=== PATIENT | male | born 1945 | race Caucasian/White ===

== ENCOUNTER 2019-01-14 12:58 | Inpatient (IN) | payer BC, MEDICARE ==
[~2019-01-14] VITALS: Ht 182.9 cm; Wt 91.6 kg
[2019-01-14 13:20] VITALS: BP 137/77
--- NOTE | 2019-01-14 14:01 | NUR ---
PT TO ER BED 12
--- NOTE | 2019-01-14 14:05 | NUR ---
BIB FAMILY W C/O LT UPPER BACK NON DRAINING ABSCESS PAIN 10/10 X 8 DAYS. WARM TO TOUCH. HAS BEEN TAKING VALACYCLOVER X 3 DAYS WITH NO RELIEF. UNABLE TO SLEEP AT NIGHT. NO FEVER. NO N/V/D. HOB UP. BED SIDE RAILS UP X 1. ON LOW BED POSITION, LOCKED. ER MADE AWARE.
[2019-01-14] MEDS ORDERED: NACL 0.9% 1,000 ML IV SCH ×2 (14:25→17:30)
[2019-01-14] MEDS ORDERED: PIPERACILLIN/TAZOBACTAM 3.375 GM in DEXT 5% MINI-BAG PLUS 50 ML IV ONE (14:25)
[2019-01-14] MEDS ORDERED: VANCOMYCIN 1,000 MG in DEXTROSE 5% 250 ML IV ONE (14:25)
[2019-01-14] MEDS ORDERED: PIPERACILLIN/TAZOBACTAM 3.375 GM VIAL IV ONE (14:45)
[2019-01-14 15:00] LABS: BASOPHILS # (AUTO) 0.1 K/uL (0.00-0.22); BASOPHILS % (AUTO) 0.7 % (0.0-2.0); EOSINOPHILS # (AUTO) 0.1 K/uL (0-0.4); EOSINOPHILS % (AUTO) 0.9 % (0.0-4.0); HEMATOCRIT 40.3 % (36-52); HEMOGLOBIN 13.9 g/dL (12.0-18.0); LYMPHOCYTES # (AUTO) 1.5 K/uL (2.0-11.5); LYMPHOCYTES % (AUTO) 19.3 % (20.5-51.1); MEAN CORPUSCULAR HEMOGLOBIN 31 pg (27-31); MEAN CORPUSCULAR HGB CONC 34 g/dL (33-37); MEAN CORPUSCULAR VOLUME 90.4 fL (80-94); MONOCYTES # (AUTO) 0.7 K/uL (0.8-1.0); MONOCYTES % (AUTO) 9.6 % (1.7-9.3); NEUTROPHILS # (AUTO) 5.3 K/uL (1.8-7.7); NEUTROPHILS % (AUTO) 69.5 % (42.2-75.2); PLATELET COUNT (AUTO) 217 K/uL (140-450); RED BLOOD CELL COUNT(AUTO) 4.46 MIL/uL (4.20-6.10); RED CELL DISTRIBUTION WIDTH 12.6 % (11.6-13.7); WHITE BLOOD COUNT (AUTO) 7.7 K/uL (4.8-10.8)
[2019-01-14 15:08] LABS: MAGNESIUM 2.1 mg/dL (1.8-2.4)
[2019-01-14 15:12] LABS: ACETONE, SERUM NEGATIVE (NEGATIVE)
[2019-01-14 15:13] LABS: ANION GAP 10.3 (8-16); CARBON DIOXIDE 28.1 mmol/L (21-32); CHLORIDE 98 mmol/L (98-107); CREATININE 0.9 mg/dL (0.7-1.3); GLUCOSE 397 mg/dL (74-106); POTASSIUM 4.4 mmol/L (3.5-5.1); SODIUM SERUM 132 mmol/L (136-145); UREA NITROGEN, BLOOD 13 mg/dL (7-18)
[2019-01-14 15:15] LABS: ALBUMIN 3.2 g/dL (3.4-5.0); ASPARTATE AMINOTRANSFERASE 17 U/L (15-37); TOTAL BILIRUBIN 0.4 mg/dL (0.0-1.0)
[2019-01-14] MEDS ORDERED: VANCOMYCIN 1,000 MG VIAL ONE (15:20)
--- NOTE | 2019-01-14 15:51 | NUR ---
FAMILY WOULD LIKE TO BE CONTACTED FOR ANY CHANGES TITA BURCIAGA (SON) [phone] MAURILIO HARO (SON) [phone] KATHRYNHEATHER BURCIAGA (DAUGHTER) [phone]
[2019-01-14 16:08] LABS: APPEARANCE,URINE CLEAR (CLEAR); BILIRUBIN,URINE NEGATIVE (NEGATIVE); BLOOD, URINE NEGATIVE (NEGATIVE); COLOR,URINE YELLOW (YELLOW); LEUKOCYTE ESTERASE ,URINE NEGATIVE (NEGATIVE); NITRITE, URINE NEGATIVE (NEGATIVE); UGLUCOSE 3+ (NEGATIVE)
[2019-01-14] MEDS ORDERED: INSULIN REGULAR, HUMAN 100 UNIT/ML VIAL SUBQ ONE (16:25)
[2019-01-14] MEDS ORDERED: ONDANSETRON 4 MG/2 ML VIAL IVP PRN (16:30)
[2019-01-14] MEDS ORDERED: ACETAMINOPHEN 325 MG TAB PO PRN (16:30)
[2019-01-14] MEDS ORDERED: DEXTROSE 50% 50 ML SYR IVP PRN (16:35)
--- NOTE | 2019-01-14 16:37 | NUR ---
Dr. Tamayo evaluating patient at bedside.
[2019-01-14] MEDS ORDERED: VANCOMYCIN PER PHARMACY MC PRN (16:55)
[2019-01-14 17:00] VITALS: BP 140/73
--- NOTE | 2019-01-14 17:00 | NUR ---
PATIENT ARRIVED FROM ER VIA WHEELCHAIR. NO DISTRESS NOTED. PAIN WITHIN TOLERABLE. V/S STABLE. AAOX4, CALM, COOPERATIVE, FAMILY MEMBER AT BEDSIDE. HAS LEFT UPPER BACK INTACT CELLULITIS. ABLE TO AMBULATE. IV SITE INTACT, PATENT. ORIENTED PATIENT TO ROOM AND CALL LIGHT. REVIEWED PLAN OF CARE WITH PATIENT/FAMILY. PATIENT/FAMILY VERBALIZED UNDERSTANDING. SAFETY MEASURES IN PLACE, CALL LIGHT WITHIN REACH. WILL CONTINUE TO MONITOR.
[2019-01-14] MEDS ORDERED: VALA1TAB PO (17:03)
[2019-01-14 17:09] LABS: BARBITURATE, URINE NEG. ng/ml (NEG <=200); BENZODIAZEPINE, URINE NEG. ng/mL (NEG <=200); CANNABINOID, URINE NEG. ng/mL (NEG <=50); COCAINE, URINE NEG. ng/mL (NEG <=300); OPIATE, URINE NEG. ng/mL (NEG <=2000); PHENCYCLIDINE SCREEN,URINE NEG. ng/mL (NEG <=25)
--- NOTE | 2019-01-14 17:10 | NUR ---
Patient will be admitted to care of Dr Guillen. Admited to Med Surg. Will go to room 106-B. Belongings list completed. Report to ALISON Blevins.
[2019-01-14 17:19] LABS: FREE T4 (FREE THYROXINE) 0.78 ng/dL (0.76-1.46); PHOSPHORUS 3.1 mg/dL (2.5-4.9); THYROID STIMULATING HORMONE 4.27 uIU/mL (0.34-3.74)
[2019-01-14 17:33] LABS: PROTHROMBIN TIME 9.9 secs (10.8-13.4)
--- NOTE | 2019-01-14 19:30 | NUR ---
RECEIVED REPORT FROM DAY SHIFT NURSE FOR CONTINUITY OF CARE. PATIENT IS AWAKE, ALERT, AND COOPERATIVE. RESPIRATION EVEN UNLABORED ON ROOM AIR. NO DISTRESS NOTED. SKIN IS WARM AND DRY. IV PATENT AND INTACT. FAMILY AT BEDSIDE. PATIENT IS AMBULATORY. ALL SAFETY MEASURES ARE IN PLACE. FAMILY AT BEDSIDE. PLAN OF CARE WAS DISCUSSED. BED IS AT LOW POSITION. CALL LIGHT WITHIN REACH AND ABLE TO VERBALIZE ITS USE. WILL CONTINUE TO MONITOR.
--- NOTE | 2019-01-14 19:33 | NUR ---
GAVE REPORT TO ENGINE HEAD REPAIRER NURSE FOR CONTINUITY OF CARE. PATIENT IN STABLE CONDITION.
[2019-01-14 20:00] VITALS: BP 139/69
--- NOTE | 2019-01-14 20:00 | NUR ---
INITIAL ASSESSMENT DONE. VITALS WERE TAKEN. PATIENT CONDITION STABLE. WILL CONTINUE TO MONITOR.
--- NOTE | 2019-01-14 20:30 | NUR ---
ALL SCHEDULE MEDS WERE GIVEN. PATIENT COMPLAINED OF BACK PAIN 04/24. PRN PAIN MED ADMINISTERED. WILL CONTINUE TO MONITOR.
[2019-01-14] MEDS: DOCUSATE SODIUM 100 MG GELCAP PO SCH (20:32)
[2019-01-14] MEDS: HYDROcodone/APAP 7.5/325 MG 1 TAB PO PRN (20:34)
[2019-01-14] MEDS: INSULIN LISPRO SLIDING SCALE 100 UNITS/ML VIAL SUBQ PRN (21:08)
[2019-01-14] MEDS: BLOOD GLUCOSE MONITORING 1 DEV DEV FS SCH (21:09)
[2019-01-14] MEDS: DEXT 5% /NACL 0.9% 1,000 ML IV SCH (22:02)
--- NOTE | 2019-01-14 22:30 | NUR ---
CHECKED PATIENT. PATIENT SLEEPING RESPIRATION EVEN UNLABORED ON ROOM AIR. NO DISTRESS NOTED. WILL CONTINUE TO MONITOR.
[2019-01-15] VITALS: BP 116/50
--- NOTE | 2019-01-15 | NUR ---
VITALS WERE TAKEN. PATIENT CONDITION STABLE. NO DISTRESS NOTED WILL CONTINUE TO MONITOR.
--- NOTE | 2019-01-15 02:00 | NUR ---
CHECKED PATIENT. PATIENT SLEEPING RESPIRATION EVEN UNLABORED ON ROOM AIR. NO DISTRESS NOTED. WILL CONTINUE TO MONITOR.
[2019-01-15] MEDS ORDERED: VANCOMYCIN 1GM/DEXT 5% PREMIX 200 ML IV SCH (04:00)
--- NOTE | 2019-01-15 04:00 | NUR ---
CHECKED PATIENT. PATIENT SLEEPING RESPIRATION EVEN UNLABORED ON ROOM AIR. NO DISTRESS NOTED. WILL CONTINUE TO MONITOR.
[2019-01-15] MEDS: INSULIN LISPRO SLIDING SCALE 100 UNITS/ML VIAL SUBQ PRN ×4 (06:38→20:22)
[2019-01-15] MEDS: BLOOD GLUCOSE MONITORING 1 DEV DEV FS SCH ×4 (06:40→20:23)
[2019-01-15 07:01] LABS: BASOPHILS % (AUTO) 0.4 % (0.0-2.0); EOSINOPHILS # (AUTO) 0.1 K/uL (0-0.4); EOSINOPHILS % (AUTO) 1.6 % (0.0-4.0); HEMATOCRIT 39.2 % (36-52); HEMOGLOBIN 13.2 g/dL (12.0-18.0); LYMPHOCYTES # (AUTO) 1.6 K/uL (2.0-11.5); LYMPHOCYTES % (AUTO) 23.2 % (20.5-51.1); MEAN CORPUSCULAR HEMOGLOBIN 31 pg (27-31); MEAN CORPUSCULAR HGB CONC 34 g/dL (33-37); MEAN CORPUSCULAR VOLUME 90.3 fL (80-94); MONOCYTES # (AUTO) 0.8 K/uL (0.8-1.0); MONOCYTES % (AUTO) 10.8 % (1.7-9.3); NEUTROPHILS # (AUTO) 4.5 K/uL (1.8-7.7); PLATELET COUNT (AUTO) 210 K/uL (140-450); RED BLOOD CELL COUNT(AUTO) 4.34 MIL/uL (4.20-6.10); RED CELL DISTRIBUTION WIDTH 12.7 % (11.6-13.7); WHITE BLOOD COUNT (AUTO) 7.1 K/uL (4.8-10.8)
--- NOTE | 2019-01-15 07:19 | NUR ---
ENDORSED PATIENT TO DAY SHIFT NURSE FOR CONTINUITY OF CARE. PATIENT IS STABLE.
--- NOTE | 2019-01-15 07:20 | NUR ---
OR NURSES ON UNIT TO TAKE PATIENT FOR I&D. WILL CONTINUE TO MONITOR WHEN PATIENT RETURNS ON UNIT.
--- NOTE | 2019-01-15 07:22 | NUR ---
RECEIVED REPORT FROM TELEPHONE OPERATOR NURSE. PATIENT ON HIS WAY TO OR FOR I&D. NO DISTRESS NOTED. AAOX4, CALM, COOPERATIVE. HAS LEFT UPPER BACK CELLULITIS THAT IS INTACT WITH ERYTHEMA. IV SITE INTACT, PATENT. REVIEWED PLAN OF CARE WITH PATIENT. PATIENT VERBALIZED UNDERSTANDING. SAFETY MEASURES IN PLACE, CALL LIGHT WITHIN REACH. WILL CONTINUE TO MONITOR.
[2019-01-15 07:25] LABS: ANION GAP 11.3 (8-16); CARBON DIOXIDE 27.4 mmol/L (21-32); CHLORIDE 101 mmol/L (98-107); CREATININE 0.8 mg/dL (0.7-1.3); GLUCOSE 258 mg/dL (74-106); POTASSIUM 3.7 mmol/L (3.5-5.1); SODIUM SERUM 136 mmol/L (136-145); UREA NITROGEN, BLOOD 12 mg/dL (7-18)
[2019-01-15] MEDS ORDERED: PROPOFOL 200 MG/20 ML VIAL IV ONE (07:30)
[2019-01-15] MEDS ORDERED: SEVOFLURANE 250 ML BTL INH ONE (07:30)
[2019-01-15] MEDS ORDERED: NACL 0.9% 1,000 ML IV SCH (07:34)
[2019-01-15 07:35] LABS: PHOSPHORUS 3.5 mg/dL (2.5-4.9)
[2019-01-15] MEDS ORDERED: BLOOD GLUCOSE MONITORING 1 DEV DEV FS SCH (07:35)
[2019-01-15] MEDS ORDERED: HYDROmorphone 1 MG/ML AMP IVP PRN (07:35)
[2019-01-15] MEDS ORDERED: diphenhydrAMINE 50 MG/ML VIAL IVP PRN (07:35)
[2019-01-15] MEDS ORDERED: MEPERIDINE 25 MG/ML SYR IVP PRN (07:35)
[2019-01-15] MEDS ORDERED: ONDANSETRON 4 MG/2 ML VIAL IVP PRN (07:35)
[2019-01-15] MEDS ORDERED: MIDAZOLAM 2 MG/2 ML VIAL ONE (07:57)
[2019-01-15] MEDS ORDERED: fentaNYL 0.05 MG/ML VIAL ONE (07:58)
[2019-01-15] MEDS ORDERED: MEPERIDINE 25 MG/ML SYR ONE (07:58)
[2019-01-15] MEDS ORDERED: BUPIVACAINE-MPF 0.25% 30 ML VIAL INJ ONE (07:59)
[2019-01-15] MEDS: DEXT 5% /NACL 0.9% 1,000 ML IV SCH (08:00)
[2019-01-15 08:13] LABS: CHOL/HDL RATIO 6.2 (1-4.5)
--- NOTE | 2019-01-15 08:37 | NUR ---
PATIENT HAS BEEN SCREENED AND CATEGORIZED HIGH NUTRITION RISK. PATIENT WILL BE SEEN WITHIN 1-2 DAYS OF ADMISSION. 01/15/19-01/16/[address]
--- NOTE | 2019-01-15 09:08 | NUR ---
PATIENT BACK ON UNIT FROM OR. NO DISTRESS NOTED. PAIN WITHIN TOLERABLE. V/S STABLE. WILL CONTINUE TO MONITOR.
[2019-01-15 09:15] VITALS: BP 128/55
[2019-01-15] MEDS: metFORMIN 500 MG TAB PO SCH ×2 (09:44→17:01)
[2019-01-15] MEDS: DOCUSATE SODIUM 100 MG GELCAP PO SCH ×2 (09:44→20:22)
--- NOTE | 2019-01-15 10:12 | NUR ---
CM NOTE RECEIVED ORDER FOR HOME HEALTH. PER DR. WEBER, STILL WAITING FOR CULTURE RESULTS AND THE PLAN IS FOR POSSIBLE DISCHARGE TOMORROW. SPOKE WITH [facility] CM COORDINATOR GABBI TO INFORM REGARDING ORDER FOR HOME HEALTH. PER GABBI, FAX THE ORDER AND CLINICAL PACKET TO [facility] FAX# [phone] PH# [phone]. FAXED REQUESTED INFO TO [facility], ATTN: [facility]. PER DE ONE[facility], SHE WILL CALL BACK TO LET US KNOW WHICH HOME HEALTH WILL BE ASSIGNED TO THE PATIENT.
--- NOTE | 2019-01-15 11:00 | NUR ---
PATIENT LYING DOWN IN BED SLEEPING, AROUSABLE BY VOICE. NO DISTRESS NOTED. CONDITION UNCHANGED. WILL CONTINUE TO MONITOR.
--- NOTE | 2019-01-15 11:28 | NUR ---
CM NOTE PER [facility] OF [facility] PH# [phone], THE PATIENT HAS BEEN SET UP WITH HOME HEALTH CALLED [facility] PH# [phone]. PER TYRONE OF [facility] THEY ARE ACCEPTING THE PATIENT AND SHE WAS MADE AWARE OF THE PLAN FOR DISCHARGE TOMORROW. PER TYRONE THEY WILL HAVE A NURSE TO SEE THE PATIENT WHEN DISCHARGED. DR. WEBER AWARE. Addendum: 01/16/19 at 1414 by Elena Santacruz CM RECEIVED FAX FROM [facility] STATING THAT FOR [facility]# [phone]
--- NOTE | 2019-01-15 12:31 | NUR ---
01/15/19 RD INITIAL ASSESSMENT COMPLETED PLEASE REFER TO NUTRITION ASSESSMENT UNDER CARE ACTIVITY FOR ESTIMATED NUTRITIONAL NEEDS. 1. CONTINUE CCHO 60 GM DIET TOLERATED 2. RD PROVIDED NUTRITION EDUCATION FOR PATIENT. PT ACCEPTED 3. RD TO FOLLOW-UP 5-7 DAYS, LOW RISK KARRIE TIM RD
--- NOTE | 2019-01-15 12:46 | NUR ---
PATIENT SITTING IN BED WITH LUNCH TRAY. SON AT BEDSIDE. NO DISTRESS NOTED. DENIES ANY PAIN. SCHEDULED MEDICATIONS DUE GIVEN. WILL CONTINUE TO MONITOR.
[2019-01-15] MEDS: NACL 0.9% 1,000 ML IV SCH (13:52)
[2019-01-15 16:00] VITALS: BP 136/60
[2019-01-15] MEDS: VANCOMYCIN 1,250 MG in NACL 0.9% 250 ML IV SCH (17:00)
[2019-01-15] MEDS: HYDROcodone/APAP 7.5/325 MG 1 TAB PO PRN (17:00)
--- NOTE | 2019-01-15 17:12 | NUR ---
PATIENT LYING DOWN IN BED. COMPLAINS OF S/P I&D PAIN ON LEFT UPPER BACK. NORCO GIVEN. OTHER SCHEDULED MEDICATIONS DUE GIVEN. WILL CONTINUE TO MONITOR.
--- NOTE | 2019-01-15 19:27 | NUR ---
GAVE REPORT TO REFINER OPERATOR NURSE FOR CONTINUITY OF CARE. PATIENT IN STABLE CONDITION.
--- NOTE | 2019-01-15 19:28 | NUR ---
RECEIVED PT SITTING UP ON BED TALKING TO SON AT BEDSIDE, DENIES ANY PAIN, INF INFUSING WELL, DRESSING TO LEFT UPPER BACK IN PLACE WITH MINIMAL BLOODY STAIN BUT NO ACTIVE BLEEDING NOTED, DRESSING DRY AND INTACT, PLAN OF CARE DISCUSSED, SAFETY MEASURES IN PLACE, CALL LIGHT WITHIN REACH.
[2019-01-15] MEDS: INSULIN LANTUS 100 UNITS/ML 10 ML VIAL SUBQ SCH (20:22)
--- NOTE | 2019-01-15 20:30 | NUR ---
BLOOD SUGAR CHECKED WITH 235 RESULT, PT AT FIRST REFUSED INSULIN COVERAGE AND DUE LANTUS, RISK AND BENEFITS EXPLAINED, ABLE TO CONVINCE TO GET INSULIN COVERAGE BUT REFUSING LANTUS, ALL NEEDS ATTENDED.
[2019-01-16] VITALS: BP 129/58
--- NOTE | 2019-01-16 | NUR ---
PT SLEEPING, EASILY AROUSABLE, VITAL SIGNS STABLE, DENIES ANY PAIN, DRESSING DRY AND INTACT, IVF INFUSING WELL, CONTINUE TO MONITOR CLOSELY.
--- NOTE | 2019-01-16 02:23 | NUR ---
ROUNDS MADE, PT SEEN AWAKE, KALPESH MARTINEZ ASK PT IF HE IS PAIN, PT SAID HE HAS BACK PAIN, OFFERED PAIN PILL BUT PT REFUSED STATED IT ONLY RELIEVES PAIN FOR A SHORT TIME, OFFERED TO CALL DOCTOR AND WILL ASK FOR STRONGER MEDICATION BUT PT STATED IM OK RIGHT NOW, MAYBE LATER IN THE DAY, WILL MONITOR CLOSELY.
[2019-01-16] MEDS: VANCOMYCIN 1,250 MG in NACL 0.9% 250 ML IV SCH ×2 (03:31→14:57)
--- NOTE | 2019-01-16 03:31 | NUR ---
PT SLEEPING, NO SIGNS OF PAIN, DUE VANCOMYCIN ADMINISTERED, MONITORED CLOSELY.
[2019-01-16 04:40] VITALS: BP 143/64
--- NOTE | 2019-01-16 04:40 | NUR ---
SEEN PT SLEEPING, NO SIGNS OF DISTRESS, VANCOMYCIN IVPB INFUSING WELL, MONITORED CLOSELY.
--- NOTE | 2019-01-16 05:30 | NUR ---
PT AMBULATED TO BR WITH STEADY GAIT, VOIDED FREELY, DRESSING TO LEFT UPPER BACK DRY AND INTACT, GOWN CHANGED AND PROVIDED WITH WARM BLANKET, BLOOD SUGAR CHECKED WITH 222 RESULT, WILL GIVE INSULIN COVERAGE, MONITORED CLOSELY.
[2019-01-16] MEDS: INSULIN LISPRO SLIDING SCALE 100 UNITS/ML VIAL SUBQ PRN ×4 (06:06→21:49)
[2019-01-16 06:13] LABS: BASOPHILS % (AUTO) 0.2 % (0.0-2.0); EOSINOPHILS # (AUTO) 0.1 K/uL (0-0.4); EOSINOPHILS % (AUTO) 0.9 % (0.0-4.0); HEMATOCRIT 39.6 % (36-52); HEMOGLOBIN 13.5 g/dL (12.0-18.0); LYMPHOCYTES # (AUTO) 1.7 K/uL (2.0-11.5); LYMPHOCYTES % (AUTO) 20.7 % (20.5-51.1); MEAN CORPUSCULAR HEMOGLOBIN 31 pg (27-31); MEAN CORPUSCULAR HGB CONC 34 g/dL (33-37); MONOCYTES # (AUTO) 0.9 K/uL (0.8-1.0); MONOCYTES % (AUTO) 10.8 % (1.7-9.3); NEUTROPHILS # (AUTO) 5.5 K/uL (1.8-7.7); NEUTROPHILS % (AUTO) 67.4 % (42.2-75.2); PLATELET COUNT (AUTO) 217 K/uL (140-450); RED BLOOD CELL COUNT(AUTO) 4.36 MIL/uL (4.20-6.10); RED CELL DISTRIBUTION WIDTH 12.6 % (11.6-13.7); WHITE BLOOD COUNT (AUTO) 8.1 K/uL (4.8-10.8)
[2019-01-16 06:28] LABS: ANION GAP 12.9 (8-16); CARBON DIOXIDE 26.9 mmol/L (21-32); CHLORIDE 101 mmol/L (98-107); CREATININE 0.8 mg/dL (0.7-1.3); GLUCOSE 221 mg/dL (74-106); POTASSIUM 3.8 mmol/L (3.5-5.1); SODIUM SERUM 137 mmol/L (136-145); UREA NITROGEN, BLOOD 10 mg/dL (7-18)
[2019-01-16] MEDS: BLOOD GLUCOSE MONITORING 1 DEV DEV FS SCH ×4 (06:53→21:23)
--- NOTE | 2019-01-16 07:10 | NUR ---
RECEIVED PT REPORT FROM REHABILITATION SPECIALIST NURSE AT BEDSIDE. PT IS ASLEEP AT THIS TIME, NO S/S OF ACUTE DISTRESS OR SOB NOTED. PT IS ON ROOM AIR. DRY DRESSING NOTED ON THE L SIDE BACK, INTACT. OTHERWISE, SKIN IS INTACT. IV SITE NOTED ON LANDRY LAC, 20 G, INFUSING NS 50 ML/HR. PT IS AMBULATORY, CALL LIGHT IS WITHIN REACH. WILL CONTINUE TO MONITOR.
--- NOTE | 2019-01-16 07:27 | NUR ---
PT AWAKE, NO SIGNS OF DISTRESS, REPORT GIVEN TO ALISON MALONE FOR CONTINUITY OF CARE.
[2019-01-16 08:30] VITALS: BP 130/74
[2019-01-16] MEDS ORDERED: ATORVASTATIN 20 MG TAB PO SCH (09:00)
[2019-01-16] MEDS: ATORVASTATIN 20 MG TAB PO SCH (09:29)
[2019-01-16] MEDS: ECOTRIN 81 MG TABEC PO SCH (09:29)
[2019-01-16] MEDS: metFORMIN 500 MG TAB PO SCH ×2 (09:29→16:32)
[2019-01-16] MEDS: DOCUSATE SODIUM 100 MG GELCAP PO SCH ×2 (09:29→21:23)
[2019-01-16] MEDS: LISINOPRIL 5 MG TAB PO SCH (09:30)
[2019-01-16] MEDS: HYDROcodone/APAP 7.5/325 MG 1 TAB PO PRN ×2 (09:30→21:39)
[2019-01-16] MEDS: NACL 0.9% 1,000 ML IV SCH (09:34)
--- NOTE | 2019-01-16 09:40 | NUR ---
SCHEDULED AM MEDS ADMINISTERED, PT TOLERATED WELL. PT C/O BACK PAIN PAIN 04/24, PRN NORCO ADMINISTERED FOR PAIN. WILL REEVALUATE FOR EFFECTIVENESS.
--- NOTE | 2019-01-16 11:00 | NUR ---
PT'S VISITING AT BEDSIDE AT THIS TIME.
--- NOTE | 2019-01-16 12:02 | NUR ---
PT'S SURGICAL DRESSING HAD A LARGE AMOUNT OF SEROSANGUINEOUS DRAINAGE, APPLIED A NEW CLEAN DRY DRESSING OVER THE INCISION. ORIGINAL PACKING GAUZE LEFT IN PLACE.
--- NOTE | 2019-01-16 15:09 | NUR ---
PT RESTING QUIETLY IN BED. NO S/S OF ANY DISTRESS, NO SOB NOTED.
[2019-01-16 15:51] VITALS: BP 134/65
--- NOTE | 2019-01-16 19:15 | NUR ---
PT ENDORSED TO REPAIR MILLER IN STABLE CONDITION.
--- NOTE | 2019-01-16 19:16 | NUR ---
RECEIVED BEDSIDE REPORT FROM DAY SHIFT RN, PATIENT IN STABLE CONDITION, RESTING IN BED, NO SIGNS OF DISTRESS ON RA, BED LOW, CALL LIGHT IN REACH. WILL CONTINUE TO MONITOR.
--- NOTE | 2019-01-16 21:40 | NUR ---
PATIENT COMPLAINING OF PAIN AT IV SITE, VERY TENDER TO TOUCH, MINOR SWELLING AT SITE. DC IV SITE, SEE INTERVENTION. PATIENT IS REFUSING TO HAVE ADDITIONAL IV INSERTED AT THIS TIME. EDUCATED PATIENT THAT WE WILL BE UNABLE TO ADMINISTER HIS ORDERED IV ABX IF WE DO NOT HAVE IV ACCESS, BUT PATIENT STILL REFUSED. HE WISHES TO SLEEP AND DOES NOT WANT AN IV FOR TONIGHT. DR. PRYOR AWARE. PATIENT WAS WILLING TO TAKE ALL OTHER SCHEDULED MEDICATIONS. AC CONTINUE TO MONITOR.
--- NOTE | 2019-01-16 21:42 | NUR ---
PATIENT COMPLAINING OF PAIN IN HIS BACK AND IV SITE, ADMINISTERED PRN PAIN MEDICATION. WILL CONTINUE TO MONITOR.
[2019-01-16] MEDS: INSULIN LANTUS 100 UNITS/ML 10 ML VIAL SUBQ SCH (21:49)
[2019-01-16] MEDS ORDERED: VANCOMYCIN 500 MG VIAL PO SCH (21:50)
--- NOTE | 2019-01-16 23:50 | NUR ---
PATIENT SLEEPING NO SIGNS OF DISTRESS ON RA, BED LOW, CALL LIGHT IN REACH. WILL CONTINUE TO MONITOR.
[2019-01-17 00:40] VITALS: BP 146/75
--- NOTE | 2019-01-17 02:10 | NUR ---
PATIENT STILL SLEEPING, NO SIGNS OF DISTRESS, BED LOW , CALL LIGHT WITHIN REACH.
[2019-01-17] MEDS: VANCOMYCIN 1,250 MG in NACL 0.9% 250 ML IV SCH (04:00)
--- NOTE | 2019-01-17 04:05 | NUR ---
PATIENT AMBULATED TO RESTROOM, WENT BACK TO BED BED LOW, CALL LIGHT IN REACH. STATES THAT HE NEEDS NOTHING AT THIS TIME. WILL CONTINUE TO MONITOR.
[2019-01-17] MEDS: NACL 0.9% 1,000 ML IV SCH (04:55)
[2019-01-17] MEDS: BLOOD GLUCOSE MONITORING 1 DEV DEV FS SCH (05:59)
[2019-01-17] MEDS: INSULIN LISPRO SLIDING SCALE 100 UNITS/ML VIAL SUBQ PRN (06:01)
[2019-01-17 06:53] LABS: BASOPHILS % (AUTO) 0.2 % (0.0-2.0); EOSINOPHILS # (AUTO) 0.1 K/uL (0-0.4); EOSINOPHILS % (AUTO) 1.8 % (0.0-4.0); HEMATOCRIT 42.2 % (36-52); HEMOGLOBIN 14.3 g/dL (12.0-18.0); LYMPHOCYTES # (AUTO) 1.8 K/uL (2.0-11.5); MEAN CORPUSCULAR HEMOGLOBIN 31 pg (27-31); MEAN CORPUSCULAR HGB CONC 34 g/dL (33-37); MONOCYTES # (AUTO) 0.8 K/uL (0.8-1.0); MONOCYTES % (AUTO) 10.7 % (1.7-9.3); NEUTROPHILS # (AUTO) 4.3 K/uL (1.8-7.7); NEUTROPHILS % (AUTO) 61.3 % (42.2-75.2); PLATELET COUNT (AUTO) 251 K/uL (140-450); RED BLOOD CELL COUNT(AUTO) 4.64 MIL/uL (4.20-6.10); RED CELL DISTRIBUTION WIDTH 12.5 % (11.6-13.7)
--- NOTE | 2019-01-17 07:10 | NUR ---
RECEIVED PT REPORT FROM PARCEL POST TRUCK DRIVER NURSE. PT IS ASLEEP, NO S/S OF ACUTE DISTRESS NOTED. PT'S IV LAST NIGHT INFILTRATED, AND HE HAS BEEN REFUSING TO HAVE A NEW ONE INSERTED. PT IS ON ROOM AIR, DRESSING ON BACK IS DRY AND INTACT. CALL LIGHT IS WITHIN REACH. WILL CONTINUE TO MONITOR.
--- NOTE | 2019-01-17 07:25 | NUR ---
ENDORSED PT TO DAY SHIFT NURSE FAISAL RN, PT STABLE, NO DISTRESS NOTED, CALL LIGHT WITHIN REACH.
[2019-01-17] MEDS ORDERED: SULF-58 PO (07:48)
[2019-01-17 08:00] VITALS: BP 131/65
[2019-01-17] MEDS: metFORMIN 500 MG TAB PO SCH (08:40)
[2019-01-17] MEDS ORDERED: LANTUS SUBQ (08:40)
[2019-01-17] MEDS ORDERED: ASPI-1173 PO (08:40)
[2019-01-17] MEDS: LISINOPRIL 5 MG TAB PO SCH (08:40)
[2019-01-17] MEDS ORDERED: METF500T PO (08:40)
[2019-01-17] MEDS ORDERED: LISI-424 PO (08:40)
[2019-01-17] MEDS ORDERED: ATOR20TA40 PO (08:40)
[2019-01-17] MEDS: DOCUSATE SODIUM 100 MG GELCAP PO SCH (08:40)
[2019-01-17] MEDS: ECOTRIN 81 MG TABEC PO SCH (08:41)
[2019-01-17] MEDS: ATORVASTATIN 20 MG TAB PO SCH (08:41)
[2019-01-17] MEDS ORDERED: HYDR-5123 PO (08:41)
--- NOTE | 2019-01-17 09:10 | NUR ---
AM MEDS ADMINISTERED, PT TOLERATED WELL
--- NOTE | 2019-01-17 09:44 | NUR ---
INCISION SWABBED AND SENT TO LAB FOR CULTURE, PER ORDER
--- NOTE | 2019-01-17 11:09 | NUR ---
DISCHARGE INSTRUCTION AND RX GIVEN AND EXPLAINED TO PT AND PT'S VIA TELEPHONE INTER PRETER HARITHA #[id number], ALL QUESTIONS ASKED AND ANSWERED, PT AND VERBALIZED FULL UNDERSTANDING. WILL TAKE WOUND PHOTO AND DRESSING CHANGE THEN WILL DC HOME.
--- NOTE | 2019-01-17 11:30 | NUR ---
PT'S WOUND CARE DONE. OLD PACKING GAUZE REMOVED, WOUND IRRIGATED WITH NS, AND REPACKED WITH WET GAUZE. COVERED WITH A DRY ABD DRESSING. PT'S WAS PRESENT AT BEDSIDE. EXPLAINED TO PT AND THAT THE HOME HEALTH NURSE WILL BE COMING TO PERFORM THIS WET-TO-DRY PROCEDURE DAILY.
--- NOTE | 2019-01-17 11:45 | NUR ---
PT HAS DISCHARGED. PT WAS GIVEN DC INSTRUCTIONS AND PRESCRIPTION TO WHICH HE VERBALIZED UNDERSTANDING. PT IS AWARE THAT A HOME HEALTH NURSE WILL BE VISITING HIM DAILY FOR THE DRESSING CHANGE. IV SITE AND WRIST BANDS WERE REMOVED. PT WAS GIVEN SUPPLIES FOR THE FIRST FEW WET-TO-DRY DRESSING CHANGES AT HOME. PT LEFT IN STABLE CONDITION WITH ALL HIS BELONGINGS.
[2019-02-01 08:26] LABS: MYOGLOBIN, SERUM <21 ng/mL (28-72)
== END 2019-01-17 11:45 | disposition home health service (06) | DRG 580 ==
LOC: MED 12:58 → MTU 16:31
PROVIDERS: ADMIT General Practice; ATTEND General Practice
PROC: 0KBG0ZZ Excision of Left Trunk Muscle, Open Approach (ICD-10-PCS; principal; 2019-01-15 07:30)
DX: L72.3 Sebaceous cyst (principal); L02.212 Cutaneous abscess of back [any part, except buttock and flank]; E87.1 Hypo-osmolality and hyponatremia; E44.0 Moderate protein-calorie malnutrition; E11.65 Type 2 diabetes mellitus with hyperglycemia; Z68.27 Body mass index [BMI] 27.0-27.9, adult; E78.2 Mixed hyperlipidemia; E78.00 Pure hypercholesterolemia, unspecified; E03.8 Other specified hypothyroidism
CPT/HCPCS: 36415; 36600; 71045; 76536; 80048; 80053; 80202; 80305; 81003; 82009; 82150; 82803; 82948; 83036; 83605; 83690; 83735; 83874; 83880; 84100; 84439; 84443; 84484; 85025; 85610; 85730; 87040; 87070; 87081; 87086; 93005; 96365; 96372; 99285; J1815; J2175; J2250; J2543; J2704; J3010; J3370; J3490; J7030; J7042; Q0092